=== PATIENT | male | born 1935 | race Caucasian/White ===

== ENCOUNTER 2016-12-05 18:45 | Emergency (ER) | payer OTHER ==
[~2016-12-05] VITALS: Ht 182.9 cm; Wt 80.4 kg
[~2016-12-05 18:45] MED LIST: ALLOPURINOL300 MG PO; AZOR 5/20 MG1 TABLET PO; FOLIC ACID1 MG PO; FUROSEMIDE20 MG PO; KLOR-CON M2020 MEQ PO; LOTREL 5/201 CAPSULE PO; METHOTREXATE2.5 MG PO; SIMVASTATIN20 MG PO; XALATAN2.5 ML BOTH EYES; XARELTO20 MG PO
[2016-12-05 19:33] LABS: EOSINOPHIL (%) 0.1 % (0-5); HEMATOCRIT 41.3 % (38.0-50.0); IMMATURE GRANULOCYTE (%) 0.6 % (0.0-0.7); IMMATURE GRANULOCYTE COUNT 0.1 K/uL; INSTRUMENT ABS NEUTROPHIL CT 10.3 K/uL; LYMPHOCYTE COUNT 0.4 K/uL (1.0-2.8); MCH 33.1 PG (29.0-34.0); MCHC 33.4 G/DL (30.0-36.0); MEAN PLAT.VOLUME 11.6 uM^3 (9.0-12.4); MONOCYTE (%) 4.9 % (3-12); MONOCYTE COUNT 0.6 K/uL (0-0.8); NEUTROPHIL (%) 90.7 % (45-76); NEUTROPHIL COUNT 10.3 K/uL (1.8-6.4); PLATELET COUNT 118 K/uL (156-360); RBC DIS.WIDTH-CV 14.6 % (11.8-14.6); RED BLOOD COUNT 4.17 M/uL (4.00-5.50); WHITE BLOOD COUNT 11.4 K/uL (4.1-10.2)
[2016-12-05 19:45] LABS: CHLORIDE 104 mEq/L (99-109); POTASSIUM 3.8 mEq/L (3.7-5.4); SODIUM 137 mEq/L (136-147)
[2016-12-05 19:47] LABS: GLUCOSE 148 mg/dL (70-99)
[2016-12-05 19:48] LABS: ANION GAP 10 MEQ/L (2-14)
[2016-12-05 19:51] LABS: GFR ESTIMATE (CALCULATED) > 59 mL/min/
[2016-12-05 19:52] LABS: UREA NITROGEN (BUN) 18 mg/dL (9-23)
[2016-12-05 20:08] LABS: ADD MIUA? YES; BILIRUBIN NEGATIVE; BLOOD NEGATIVE; COLOR YELLOW ((YELLOW)); GLUCOSE (STRIP) NEGATIVE; KETONES 5; LEUKOCYTES NEGATIVE; NITRITE NEGATIVE; PROTEIN (STRIP) 100; SPECIFIC GRAVITY 1.015 (1.000-1.030)
[2016-12-05 20:13] LABS: BACTERIA NONE SEEN /HPF; EPITHELIAL CELLS RARE /HPF; MUCUS TRACE /LPF; RED BLOOD CELLS 0-5 /HPF (0-5); UCUL ADDED? NO; WHITE BLOOD CELLS 0-5 /HPF (0-5)
[2016-12-05 20:32] LABS: INFLUENZA A VIRAL ANTIGEN NEGATIVE; INFLUENZA B VIRAL ANTIGEN POSITIVE
[2016-12-05 21:15] LABS: BASE EXCESS -0.6 mEq/L (-3 to +3); BICARBONATE 23.1 mEq/L (22-26); CARBOXY HGB 1.7 % (0-5); COMMENTS - BLOOD GASES A+C+; METHEMOGLOBIN 1.4 % (0-1.5); PCO2 34 mm Hg (35-45); PO2 65 mm Hg (80-100); SITE LR; pH 7.44 (7.35-7.45)
[2016-12-05 21:16] LABS: DEVICE NC; O2 FLOW 2 L/MIN
[2016-12-05] MEDS ORDERED: CEFTIN500 MG PO (22:24)
[2016-12-05] MEDS ORDERED: TYLENOL EXTRA500 MG PO (22:24)
[2016-12-05] MEDS ORDERED: ZITHROMAX500 MG PO (22:24)
[2016-12-05] MEDS ORDERED: PROVENTIL HFA6.7 GM IH (22:24)
[2016-12-05] MEDS ORDERED: TAMIFLU75 MG PO (22:24)
[2016-12-05 23:05] VITALS: BP 132/65
== END 2016-12-05 23:06 | disposition home or self-care (01) ==
LOC: EME → EDBD 18:45 → EME 23:06
PROVIDERS: Emergency Medicine
DX: J10.1 Influenza due to other identified influenza virus with other respiratory manifestations (principal); E78.5 Hyperlipidemia, unspecified; I10 Essential (primary) hypertension; Z87.891 Personal history of nicotine dependence
CPT/HCPCS: 36600; 71010; 80048; 81003; 82803; 83605; 85025; 87040; 87502; 93005; 99281; 99285; J7030

== ENCOUNTER 2017-08-31 15:16 | Emergency (ER) | payer OTHER ==
[~2017-08-31] VITALS: Ht 182.9 cm; Wt 85.0 kg
[~2017-08-31 15:16] MED LIST changes: +CEFTIN500 MG PO; +PROVENTIL HFA6.7 GM IH; +TAMIFLU75 MG PO; +TYLENOL EXTRA500 MG PO; +ZITHROMAX500 MG PO
[2017-08-31 18:30] VITALS: BP 144/70
== END 2017-08-31 18:35 | disposition home or self-care (01) ==
LOC: EME 15:16
DX: S01.01XA Laceration without foreign body of scalp, initial encounter (principal); S09.90XA Unspecified injury of head, initial encounter; W10.9XXA Fall (on) (from) unspecified stairs and steps, initial encounter; Z23 Encounter for immunization; I10 Essential (primary) hypertension; E78.5 Hyperlipidemia, unspecified; Z87.891 Personal history of nicotine dependence
CPT/HCPCS: 70450; 99281; 99284